=== PATIENT | female | born 1940 | race Caucasian/White ===

== ENCOUNTER 2022-12-22 16:31 | Emergency (ER) | payer BC, MEDICARE ==
[~2022-12-22] VITALS: Ht 157.5 cm; Wt 44.0 kg
[~2022-12-22 16:31] MED LIST: LEVO88TA2 PO; OMEP40CA21 PO; RALO60TA PO
--- NOTE | 2022-12-22 16:35 | NUR ---
Dr Stiles seen and evaluated the pt.
[2022-12-22] MEDS ORDERED: ACETAMINOPHEN ES 500 MG TABLET PO ONE (16:45)
[2022-12-22] MEDS ORDERED: ACETAMINOPHEN ES 500 MG TABLET ONE (16:52)
[2022-12-22] MEDS ORDERED: OXYMETAZOLINE NASAL 0.05% 15 ML SPRAY NS ONE ×2 (17:30→17:38)
--- NOTE | 2022-12-22 17:45 | NUR ---
Pt has multiple small abrasions on face, Lt knee and Nasir hands. clean the sites and applied dressing as needed.
[2022-12-22 18:21] VITALS: BP 133/70; TEMP 97.5; O2SAT 99
--- NOTE | 2022-12-22 18:21 | NUR ---
Patient discharged to home in stable condition. Written and verbal after care instructions given. Patient verbalizes understanding of instructions. Stressed follow up or return to ER for worsening s/s.
== END 2022-12-22 18:22 | disposition home or self-care (01) ==
LOC: ER 16:32
DX: S00.81XA Abrasion of other part of head, initial encounter (principal); R04.0 Epistaxis; K21.9 Gastro-esophageal reflux disease without esophagitis; Z88.2 Allergy status to sulfonamides; Z79.899 Other long term (current) drug therapy; W01.0XXA Fall on same level from slipping, tripping and stumbling without subsequent striking against object, initial encounter; Y93.89 Activity, other specified; Y92.89 Other specified places as the place of occurrence of the external cause; Y99.8 Other external cause status
CPT/HCPCS: 70486; A4663; A9150